=== PATIENT | male | born 1970 | race American Indian/Alaskan Native ===

== ENCOUNTER 2020-09-06 04:36 | Emergency (ER) | payer OTHER ==
[2020-09-06 05:19] VITALS: BP 166/100
[2020-09-06] MEDS ORDERED: HYDROcodone/ACETAMINOPHEN 5-325 MG TAB PO STA (06:08)
--- NOTE | 2020-09-06 06:09 | XRay Report ---
Right ankle 3 views INDICATION: Right ankle pain. IMPRESSION: Displaced fractures involving the medial and lateral malleolus with mild subluxation of t he ankle with severe overlying swelling. Signer Name: Deonte Miller MD Signed: 09/06/2020 6:05 AM Workstation Name: [id number]
--- NOTE | 2020-09-06 06:13 | Emergency Department Report ---
ED Lower Extremity HPI - General Chief Complaint: Extremity Injury, Lower Stated Complaint: RT MARTIN BROKEN POSSIBLY Time Seen by Provider: 09/06/20 05:58 Source: patient Mode of arrival: Ambulatory Limitations: No Limitations - History of Present Illness Initial Comments: 50-year-old F [place] male presents emerged department complaining of right ankle pain after a slip and fall. States he came out of the house wearing his flip-flops instead of standing on the sidewalk to get to his car he decided to walk across the front grass which carried a steep embankment which caused him to lose his footing. States his left foot slipped forward and out to his left while the right foot got caught behind him twisting in awkward position resulting in pops that he felt and heard in the ankle followed by pain and swelling which is worse with ambulation palpation and weightbearing. Came to the emergency department with a suspicion of having a significant ankle injury and 6 to be evaluated pain is dull and throbbing. MD Complaint: ankle injury Injury: Ankle: Right, Foot: Right Type of Injury: inversion Place: home - Related Data Previous Rx's Medication Instructions Recorded Last Taken Type Acetaminophen/Codeine [Tylenol 1 tab PO Q6H PRN #14 tab 09/06/20 Unknown Rx /Codeine # 3 tab] Ketorolac [Toradol] 10 mg PO Q6H PRN #10 tablet 09/06/20 Unknown Rx Allergies Allergy/AdvReac Type Severity Reaction Status Date / Time No Known Allergies Allergy Unverified 09/06/20 05:05 ED Review of Systems ROS: Stated complaint: RT MARTIN BROKEN POSSIBLY Other details as noted in HPI Comment: All other systems reviewed and negative ED Past Medical Hx - Past Medical History Previous Medical History?: No - Surgical History Past Surgical History?: No - Social History Smoking Status: Never Smoker Substance Use Type: None - Medications Home Medications: Home Medications Medication Instructions Recorded Confirmed Last Taken Type Acetaminophen/Codeine [Tylenol 1 tab PO Q6H PRN #14 tab 09/06/20 Unknown Rx /Codeine # 3 tab] Ketorolac [Toradol] 10 mg PO Q6H PRN #10 tablet 09/06/20 Unknown Rx ED Physical Exam - General Limitations: No Limitations General appearance: alert, in no apparent distress - Head Head exam: Present: atraumatic, normocephalic - Eye Eye exam: Present: normal appearance, PERRL, EOMI - ENT ENT exam: Present: mucous membranes moist - Neck Neck exam: Present: normal inspection - Respiratory Respiratory exam: Present: normal lung sounds bilaterally. Absent: respiratory distress - Cardiovascular Cardiovascular Exam: Present: regular rate, normal rhythm. Absent: systolic murmur, diastolic murmur, rubs, gallop - GI/Abdominal GI/Abdominal exam: Present: soft, normal bowel sounds - Rectal Rectal exam: Present: deferred - Extremities Exam Extremities exam: Present: normal inspection - Expanded Lower Extremity Exam Right Ankle exam: Present: tenderness, swelling, ecchymosis Neuro vascular tendon exam: Present: no vascular compromise. Absent: pulse deficit, abnormal cap refill - Back Exam Back exam: Present: normal inspection - Neurological Exam Neurological exam: Present: alert, oriented X3 - Psychiatric Psychiatric exam: Present: normal affect, normal mood - Skin Skin exam: Present: warm, dry, intact, normal color. Absent: rash ED Course Vital Signs 09/06/20 05:14 Temperature 98.6 F Pulse Rate 98 H Respiratory 20 Rate Blood Pressure 166/100 [Left] O2 Sat by Pulse 100 Oximetry - Orthopedic Splinting/Casting Injury #1 Side: right Lower Extremity Injury Location: ankle Lower Extremity Immobilizer: posterior splint Other Orthopedic Equipment: crutches (With sugar tong) Additional Comments: Neurovascularly intact ED Lower Extremity MDM - Radiology Data Radiology results: report reviewed [facility] [address] [place] [address] XRay Report Signed Patient: CHAPARRO JAMES MR#: [id number] 23 : 1970 Acct:[id number] Age/Sex: 50 / M ADM Date: 09/06/20 Loc: ED Attending Dr: Ordering Physician: KEL PASTOR MD Date of Service: 09/06/20 Procedure(s): XR ankle 3+V RT Accession Number(s): [id number] cc: KEL PASTOR MD Fluoro Time In Minutes: Right ankle 3 views INDICATION: Right ankle pain. IMPRESSION: Displaced fractures involving the medial and lateral malleolus with mild subluxation of the ankle with severe overlying swelling. Signer Name: Deonte Miller MD Signed: 09/06/2020 6:05 AM Workstation Name: [id number] Transcribed By: Dictated By: Deonte Miller MD Electronically Authenticated By: Deonte Miller MD Signed Date/Time: 09/06/20604 DD/ 3 TD/TT: Critical care attestation.: If time is entered above; I have spent that time in minutes in the direct care of this critically ill patient, excluding procedure time. ED Disposition Clinical Impression: Fracture of distal fibula, Medial malleolar fracture Disposition: TO HOME OR SELFCARE Is pt being admited?: No Does the pt Need Aspirin: No Condition: Stable Instructions: Ankle Fracture (ED), Crutch Instructions (ED) Additional Instructions: Be sure to follow-up with orthopedic for definitive management of your ankle fracture is imperative that you follow-up with them to receive the most appropriate care for resolution Prescriptions: Ketorolac [Toradol] 10 mg PO Q6H PRN #10 tablet PRN Reason: Pain Acetaminophen/Codeine [Tylenol /Codeine # 3 tab] 1 tab PO Q6H PRN #14 tab PRN Reason: Pain , Severe (7-10) Referrals: [facility] PEGUERO [Other] - 3-5 Days [facility] [Provider Group] - 3-5 Days JERSON PERALTA MD [Staff Physician] - 3-5 Days
== END 2020-09-06 06:04 | disposition home or self-care (01) ==
LOC: ED 04:36
DX: S82.491A Other fracture of shaft of right fibula, initial encounter for closed fracture (principal); S82.51XA Displaced fracture of medial malleolus of right tibia, initial encounter for closed fracture; W18.30XA Fall on same level, unspecified, initial encounter; Y93.89 Activity, other specified; Y92.89 Other specified places as the place of occurrence of the external cause; Y99.8 Other external cause status